=== PATIENT | female | born 1995 | race Caucasian/White ===

== ENCOUNTER 2023-02-18 09:03 | Outpatient (CLI) | payer BC, SELFPAY ==
--- NOTE | 2023-02-18 09:15 | CRLHL7_ITS ---
For Patients: As a result of the Century Cures Act, medical imaging exams and procedure reports are released immediately into your electronic medical record. You may view this report before your referring provider. If you have questions, please contact your health care provider. INDICATION: Dating and viability TECHNIQUE: Conventional transabdominal two-dimensional aldrich-scale ultrasound examination. COMPARISON: None FINDINGS: There is are living twin pregnancies with gestational age of 7 weeks 2 days by LMP and EDC of 10/05/2023. This is a dichorionic twin . Twin A: The gestational sac appears to be within normal limits. Based on crown-rump length the gestational age is 6 weeks 6 days with EDC of 10/08/2023. The embryonic heart rate is measured at 126 beats per minute. Twin B: The gestational sac appears to be within normal limits. Based on crown-rump length the gestational age is 6 weeks with EDC of 10/14/2023. The embryo heart rate is measured at 89 beats per minute. A 1.8 x 0.9 x 0.7 cm subchorionic hemorrhage is demonstrated between the gestational sacs and the cervix. A right ovarian corpus luteum is noted. The right ovary measures 3.4 x 2.0 x 1.9 cm and the left 2.6 x 1.7 x 1.4 cm. IMPRESSION: 1. Living dichorionic twin with gestational age of 7 weeks 2 days by LMP, 6 weeks 6 days by crown-rump length of twin A and 6 weeks by crown-rump length of twin B. EDC based on LMP is 10/05/2023. 2. 1.8 x 0.9 x 0.7 cm subchorionic hemorrhage between the gestational sacs and the cervix. Dictated by Varinder Nevarez MD @ 02/20/2023 12:18:59 PM (Electronically Signed)
== END 2023-02-18 09:04 | disposition home or self-care (01) ==
LOC: US 09:03
PROVIDERS: Visit Provider Physician Assistant
DX: Z34.91 Encounter for supervision of normal pregnancy, unspecified, first trimester (principal); O30.001 Twin pregnancy, unspecified number of placenta and unspecified number of amniotic sacs, first trimester; O20.9 Hemorrhage in early pregnancy, unspecified; Z3A.01 Less than 8 weeks gestation of pregnancy
CPT/HCPCS: 76817; 86703; 86706; 86803; 86850; 86900; 86901; 87086; 87340; 87491; 87591

== ENCOUNTER 2023-02-18 10:28 | Outpatient (CLI) | payer BC, SELFPAY ==
[2023-02-18 16:36] LABS: Chlamydia DNA Amplified* NOT DETECTED (No Detected); GC DNA Amplified* NOT DETECTED (No Detected)
== END 2023-02-18 10:29 | disposition home or self-care (01) ==
PROVIDERS: Visit Provider Physician Assistant
DX: Z34.91 Encounter for supervision of normal pregnancy, unspecified, first trimester (principal)
CPT/HCPCS: 86592; 86703; 86704; 86706; 86762; 86787; 86803; 86850; 86900; 86901; 87086; 87340; 87491; 87591

== ENCOUNTER 2023-03-03 09:35 | Outpatient (CLI) | payer BC, SELFPAY ==
--- NOTE | 2023-03-03 09:45 | CRLHL7_ITS ---
For Patients: As a result of the Century Cures Act, medical imaging exams and procedure reports are released immediately into your electronic medical record. You may view this report before your referring provider. If you have questions, please contact your health care provider. INDICATION: FOLLOW UP VIABILITY TWIN GESTATION COMPARISON: 02/18/2023 TECHNIQUE: Real-time aldrich-scale imaging of the pelvis was performed. FINDINGS: Twin A: Gestational sac measures 4.2 cm. pole measures 2.1 cm. Yolk sac measures 3.7 millimeters. heart rate 169 beats per minute. Sonographic gestational age 8 weeks 5 days with sonographic due date 10/08/2023. There is a subchorionic hemorrhage measuring 2.8 x 0.6 x 1.8 cm located between the gestational sacs regarding this diamniotic/dichorionic twin gestation. Twin B: Gestational sac measures 1.9 cm. pole measures 3.3 millimeters, 6 weeks 0 days. No heart tones. Yolk sac measures 5.4 millimeters. IMPRESSION: Living twin A measures 8 weeks 5 days and sonographic due date 10/08/2023. Twin B demise. Dictated by Bayron Kingsley MD @ 03/03/2023 10:27:04 AM (Electronically Signed)
== END 2023-03-03 09:36 | disposition home or self-care (01) ==
LOC: US 09:36
PROVIDERS: Visit Provider Physician Assistant
DX: O30.001 Twin pregnancy, unspecified number of placenta and unspecified number of amniotic sacs, first trimester (principal); Z3A.08 8 weeks gestation of pregnancy
CPT/HCPCS: 76817

== ENCOUNTER 2023-07-28 10:55 | Outpatient (CLI) | payer BC, SELFPAY | END 2023-07-28 10:56 | disposition home or self-care (01) | LOC: NFLDREF 08-01 18:15 | PROVIDERS: Visit Provider Obstetrics & Gynecology | DX: Z34.93 Encounter for supervision of normal pregnancy, unspecified, third trimester (principal); Z3A.30 30 weeks gestation of pregnancy | CPT/HCPCS: 86592 ==

== ENCOUNTER 2023-08-26 09:50 | Outpatient (CLI) | payer BC, SELFPAY | END 2023-08-26 09:51 | disposition home or self-care (01) | LOC: NFLDREF 08-28 09:35 | PROVIDERS: Visit Provider Obstetrics & Gynecology | DX: O99.013 Anemia complicating pregnancy, third trimester (principal); D64.9 Anemia, unspecified; Z3A.34 34 weeks gestation of pregnancy | CPT/HCPCS: 82728 ==

== ENCOUNTER 2023-09-09 10:40 | Outpatient (CLI) | payer BC, SELFPAY ==
--- NOTE | 2023-09-09 10:45 | CRLHL7_ITS ---
For Patients: As a result of the Century Cures Act, medical imaging exams and procedure reports are released immediately into your electronic medical record. You may view this report before your referring provider. If you have questions, please contact your health care provider. INDICATION: Third trimester scan, evaluate growth. COMPARISON: 03/03/2023 TECHNIQUE: Real time aldrich scale imaging of the fetus was performed. FINDINGS: Sonographic imaging demonstrates a single living intrauterine gestation. Fetus demonstrates a regular cardiac rate of 142 beats per minute. Fetus has a vertex position. The placenta lies anteriorly. Amniotic fluid volume appears normal and there is a single deepest vertical pocket: 7.9 cm. The estimated weight is 3532gm which lies at the 96th %. BPD 71st percentile. HC 36th percentile. AC greater than 97th percentile. FL 22nd percentile. The HC/AC ratio measures 0.89 range (0.91-1.05). Bilateral renal pelviectasis measuring 2.2 cm and the left and 2.1 cm on the right. IMPRESSION: Sonographic gestational age 37 weeks 3 days and a sonographic due date 09/27/2023. Sonographic age 8 days ahead of the clinical age. Estimated weight 96th percentile. Abdominal circumference greater than 97th percentile. Bilateral renal pelviectasis measuring 2.2 cm on the left and 2.1 cm on the right. follow-up recommended. Dictated by Bayron Kingsley MD @ 09/11/2023 6:53:16 AM (Electronically Signed)
== END 2023-09-09 10:41 | disposition home or self-care (01) ==
LOC: US 10:40
PROVIDERS: Visit Provider Obstetrics & Gynecology
DX: Z34.93 Encounter for supervision of normal pregnancy, unspecified, third trimester (principal); Z3A.37 37 weeks gestation of pregnancy
CPT/HCPCS: 76816; 87081; 87653

== ENCOUNTER 2023-09-22 10:07 | Outpatient (CLI) | payer BC, SELFPAY ==
--- NOTE | 2023-09-22 10:30 | CRLHL7_ITS ---
For Patients: As a result of the Century Cures Act, medical imaging exams and procedure reports are released immediately into your electronic medical record. You may view this report before your referring provider. If you have questions, please contact your health care provider. INDICATION: F/U RENAL PELVIS AND VARIX COMPARISON: 09/09/2023, 05/16/2023 TECHNIQUE: Real time aldrich scale imaging of the fetus was performed. Without non-stress testing. FINDINGS: Sonographic imaging demonstrates a single living intrauterine gestation. Fetus demonstrates a regular cardiac rate of 139 beats per minute. Fetus has a vertex position. The amniotic fluid volume single deepest pocket measurement of 9.0 cm. SAVAGE 22.9 cm. The fetus was active and demonstrated normal breathing movements. There was normal flexion and extension of the trunk and extremities. Renal pelviectasis again noted, measuring 7.4 millimeters on the left and 1.5 cm on the right, previously measuring 8 millimeters on the left and 1.6 cm on the right. Varix again noted measuring 19 millimeters, previously measuring 19 millimeters. IMPRESSION: Normal biophysical profile score of 8 out of 8. Bilateral pelviectasis and varix are similar. SDP 9.0 cm. SAVAGE 22.9 cm. Dictated by Bayron Kingsley MD @ 09/22/2023 12:18:59 PM (Electronically Signed)
== END 2023-09-22 10:08 | disposition home or self-care (01) ==
LOC: US 10:07
PROVIDERS: Visit Provider Obstetrics & Gynecology
DX: O09.293 Supervision of pregnancy with other poor reproductive or obstetric history, third trimester (principal); Z3A.37 37 weeks gestation of pregnancy
CPT/HCPCS: 76816; 76819

== ENCOUNTER 2023-09-28 16:42 | Inpatient (IN) | payer BC, SELFPAY ==
[2023-09-28] VITALS (7 sets, daily range): BP systolic 101–125; BP diastolic 56–69; PULSE 76–97; RESP 16; TEMP 36.5–36.6; O2SAT 98–99; BMI 35.6
[2023-09-28 17:42] LABS: Basophils Absolute Auto 0.04 K/uL (0.00-0.30); Basophils Percent Auto 0.4 % (0.0-3.0); Hematocrit 33.7 % (33.0-51.0); Hemoglobin* 11.2 gm/dL (12.0-16.0); Immature Granulocytes Abs Auto 0.14 K/uL (0.00-0.30); Immature Granulocytes Pct Auto 1.4 %; Lymphocytes Percent Auto 14.8 % (20-44); Mean Corpuscular HGB Conc 33 gm/dL (32-36); Mean Corpuscular Hemoglobin 31 pg (26-34); Mean Corpuscular Volume 92 fL (80-100); Monocytes Percent Auto 8.3 % (0.0-11.0); Neutrophils Percent Auto 74.1 % (42.0-72.0); Platelet Count* 186 K/uL (140-440); RDW Coefficient of Variation % 13.1 % (11.5-15.5); Red Blood Count 3.67 m/uL (4.00-5.20); White Blood Count* 10.35 K/uL (4.50-11.00)
[2023-09-28 17:45] LABS: Slide Review Reflex No
--- NOTE | 2023-09-28 17:58 | W.PM.LDBA ---
Subjective History of Present Illness Date Seen: 09/28/23 Narrative: Patient is being admitted to Labor and Delivery for induction of labr. She is a 28 year old -0-4-2 woman at 39 weeks gestation. She was newly diagnosed with umbilical vein varix on US from 09/16, and [facility] recommended delivery at 39 weeks. Her full history and physical was dictated by Dr. Dick on 09/16/23. Please see this for details. Specific Issues/Plans H&P done on 09/16/[address] Dick 1. History of recurrent loss, History of 2 partial molar, and 1 miscarriage Consult with Genetics/[facility]: This was to be pre , however they had found out they were 1 day before consult. No specific genetic testing in regards to the molar pregnancies. Patient did have negative carrier screening No evidence of partial mole on early or level 2 US - partial mole could be live born, features may include severe growth restriction or congenital anomalies Needs placenta sent to pathology, serial hCG to trend to zero 2. Initially a di/di twin gestation, NOW A DOW Baby A: normal heart rate 126, Baby B: (measuring 6 days smaller) low heart rate, 89 Repeat viability ultrasound in 2 weeks: Demise of Twin B Declined NIPT, s/p consult with [facility] Scheduled for [facility] consultation and ultrasound on 04/23/2023 at [facility] [x] Level 2 US - normal anatomy/growth aside from below, anterior placenta w/o previa 3. Bilateral urinary tract dilation of fetus (UTDA2) [x] [facility] planning repeat US at 24 weeks, then q2w - planning to do at [facility] to keep within [facility] system -24 week: by patient report, kidneys stable, growth and fluid WNL [x] f/u [facility] records (24 week and subsequent) - need records [x] Peds Neph consult at 32 weeks - need records for consult, but US report was provided and both renal pelvices were 10mm on R and 7mm on L [x] 36 week US here - both renal pelvices >20mm in dilation, normal amniotic fluid [x] repeat evaluation by [facility] 09/17/23: Bilateral renal pyelectasis, Right 16 mm, Left 7.9.mm, and new finding of umbilical vein varix measuring 19 mm. Recommendations: Weekly BPP with reassessment of the umbilical vein, Delivery at 39 weeks, renal imaging of infant at 48 hours of life 4. Anxiety, well managed on sertraline 100 mg 5. History of for breech presentation, desires TOLAC History of successful [x] TOLAC consult at 28 weeks: Consent obtained on 07/28/2023 [x] 09/08 EFW 3532g 96%ile, AC >97%ile. MVP 7.9cm. Hx of successful with 10lb at 41 weeks. Encouraged her to consider IOL at 39 weeks, will discuss again at future visits. 6. Obesity, BMI 32.9 HGB A1-C: 5.3% 7. 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 Delivery at 39 weeks for this indication Flu and covid shot: declined Tdap: 07/28/23 32 wk mental health:08/11/23 34 wk Hgb: 10.7, started PO iron 36 GBS: Negative Last pap 09/2019. Repeat . Ultrasound 09/17/23: MFM. Cephalic. EFW 94%, 3727 g. BPD 84%, FL 21%, HC 30%, AC>98%. Bilateral renal pyelectasis: R 16 mm, L 7.9 mm. Umbilical vein varix 19 mm. Renal imaging at 48 hours of life. OB - Problem Based A/P Additional Plan (1) Pyelectasis of fetus on ultrasound: Status: Acute (2) H/O macrosomia in in prior , currently : Status: Acute (3) Hx successful (vaginal after ), currently : Status: Acute (4) Partial molar : Problem details: recurrent, 2 Status: Acute (5) Varices of umbilical vein: Status: Acute Plan Cervical ripening tonight, with plan for IOL tomorrow. Begin low-dose pitocin for ripening between midnight and 3 AM. Continuous monitoring while on pitocin. CBC now. IV in place. OB Exam Physical Exam Vital signs: Temp Pulse BP Pulse Ox 97.8 F 93 125/69 98 09/28/23 17:06 09/28/23 16:57 09/28/23 16:57 09/28/23 16:57 Narrative: Physical exam: General: No acute distress Psych: Alert and oriented x3, full affect HEENT: Normocephalic, atraumatic Heart: Regular rate and rhythm, no murmur rub or gallop Lungs: Clear to auscultation bilaterally Abdomen: Soft, nontender, gravid, cephalic lie Lower extremities: No edema or erythema Pelvic exam: / -2 / midposition / soft tracing: Baseline 130 / accelerations present / no decelerations / moderate variability. Irregular, infrequent contractions.
[2023-09-29] VITALS (53 sets, daily range): BP systolic 99–175; BP diastolic 53–79; PULSE 46–208; RESP 16–18; TEMP 36.4–37.1; O2SAT 80–100
[2023-09-29] MEDS: LACTATED RINGERS 1000 ML 1,000 ML 125 ML IV (02:46)
[2023-09-29] MEDS: OXYTOCIN 30 unit/500 ML in NS 30 UNIT/500 ML BAG IVPB (02:47)
--- NOTE | 2023-09-29 08:54 | PM.OBPNL ---
Subjective Time Seen by Provider: 08:54 Date Seen: 09/29/23 Objective Vital Signs: Last Vital Signs Temp 97.9 F 09/29/23 08:20 Pulse 121 H 09/29/23 08:20 Resp 16 09/29/23 06:03 BP 116/64 09/29/23 08:20 Pulse Ox 97 09/29/23 08:20 Pelvic Exam Dilation (cm): 4 Effacement (%): 50 Station: -3 Comments: Discussed with patient the discrepancy in her cervical exam as she was called 6 cm previously. In essence, she is not in active labor. This fits with her clinical picture as she's only adeline Q3-5 minutes and has not felt increased in pelvic pressure. We discuss continuing titrating Pitocin and reassessing in 3-4 hours. If she continues to be unchanged, I would like to place internals in the form of an IUPC and FSE. I explained that those are and why we use them. She expressed understanding, continues to desires TOLAC, and is amenable to the plan. Epidural per patient's request. Labor timeline thus far: Cook cath placed at 1820 on 09/27 SROM at 2130 on 09/27 Pitocin started at 0245 Assessment Status: Category l Heart Rate Baseline: 145 Intermediate Variability: Moderate (6-25) Monitor Accelerations: Present Monitor Decelerations: None
[2023-09-29] MEDS: LIDOCAINE 2% (PF) 5 ML VIAL EPIDURAL (10:17)
[2023-09-29] MEDS: ROPIVACAINE 0.2% 100 ml 100 ML 12 MG EPIDURAL (10:17)
[2023-09-29] MEDS: LACTATED RINGERS 1000 ML 1,000 ML IV (10:22)
--- NOTE | 2023-09-29 10:24 | P.ANBPRC_ITS ---
[facility] Medical History History of (05/14/21) ?Z98.891 - History of uterine scar from previous surgery (ICD-10) Surgical History History of D&C ?Z98.890 - Other specified postprocedural states (ICD-10) History of (03/21/20) ?Z98.891 - History of uterine scar from previous surgery (ICD-10) Social History Narrative: Occupation: [employer]. Marital status: . Yazdanism/cultural needs: no. Chemical or radiation exposure: no. Pre- tobacco use: no. Pre- alcohol use: 0-1/day Current tobacco use: no. Current alcohol use: no. Recreational drug use: no. Dietary restrictions: no. Blood transfusion acceptable in an emergency: yes. PSYCHOSOCIAL HISTORY: History of depression or currently depressed: no. Current or past physical, emotional, or sexual mistreatment: no. Problems that will make it hard to make it to appointments: no. What is your current living situation?: I presently have a place to live Problems where you live: no known problems In the past 12 months, utilities in danger of being shut off: no In past 12 months, lack of transportation kept you from medical appts, meetings, work, or getting things needed for daily living: no In the past 12 mos, have been you worried that your food would run out before you had money to buy more?: never true In the past 12 mos, the food you bought just didn't last and you didn't have money to buy more?: never true Smoking Status: Never smoker How often does anyone, including family, friends and others, physically hurt you : never How often does anyone, including family, friends and others, insult or talk down to you: never How often does anyone, including family, friends and others, threaten you with harm: never How often does anyone, including family, friends and others, scream or curse at you: never Little interest or pleasure in doing things: not at all Feeling down, depressed, or hopeless: not at all Meds Home Medications and Allergies Home Medications ?Medication ?Instructions ?Recorded ?Confirmed ?Type PNV no.151-iron 27 mg-folic 800 1 cap PO DAILY 12/16/22 09/28/23 History mcg-omega3 260 rl-prj-nil-fish capsule ( Multi-DHA (with vitamin K)) sertraline 100 mg tablet 100 mg PO QDAY 12/16/22 09/28/23 History diphenhydramine HCl 50 mg capsule 50 mg PO QHS 02/18/23 09/28/23 History ([employer] SleepGels) famotidine 20 mg tablet (Pepcid) 20 mg PO QDAY 02/18/23 09/28/23 History acetaminophen 500 mg tablet 1,000 mg PO Q6H PRN 08/26/23 09/28/23 History (Tylenol Extra Strength) calcium carbonate (Tums) 200 mg PO BID 08/26/23 09/28/23 History ferrous sulfate 27 mg iron tablet 27 mg PO QDAY 09/09/23 09/28/23 History Allergies Allergy/AdvReac Type Severity Reaction Status Date / Time No Known Drug Allergies Allergy Verified 09/22/23 09:06 Results Labs Labs: Laboratory Results - last 24 hr 09/28/23 17:33 WBC 10.35 RBC 3.67 L Hgb 11.2 L Hct 33.7 MCV 92 MCH 31 MCHC 33 RDW Coeff of Yohana 13.1 Plt Count 186 Neut % (Auto) 74.1 H Lymph % (Auto) 14.8 L Cedar % (Auto) 8.3 Eos % (Auto) 1.0 Baso % (Auto) 0.4 Neut # (Auto) 7.70 H Lymph # (Auto) 1.50 Cedar # (Auto) 0.90 Eos # (Auto) 0.10 Baso # (Auto) 0.04 Abs Immat Gran (auto) 0.14 Imm/Tot Granulo (auto) 1.4 Blood Type A Positive Antibody Screen NEGATIVE Vital Signs Vital Signs: Last Vital Signs Temp 98.2 F 09/29/23 09:17 Pulse 93 09/29/23 10:23 Resp 16 09/29/23 06:03 BP 124/70 09/29/23 10:23 Pulse Ox 100 09/29/23 10:20 Weight: 100.062 kg Height: 167.64 cm Anesthesia Procedures Epidural Insertion Patient Location: OB Start Time: 10:00 Stop Time: 10:30 Start Date: 09/29/23 Stop Date: 09/29/23 Reason for Block: primary anesthetic Patient Position: sitting Performed By: Yaya Penny Preanesthetic Checklist: IV checked, risks and benefits discussed, surgical consent, monitors and equipment checked, pre-op evaluation, timeout performed and anesthesia consent Prep: chlorhexidine gluconate Monitoring: blood pressure monitoring, secured entrance monitor, continuous pulse oximetry and heart rate Approach: midline Vertebral Space: lumbar (1-5) Needle Type: Tuohy needle Injection Technique: continuous catheter (catheter) Needle gauge: 17 Needle Length (cm): 10 cm Needle Insertion Depth (cm): 6 Catheter Gauge: 19 Catheter Type: multi-orifice Catheter at skin depth (cm): 11 Test Dose Result: negative and lidocaine 1.5% with epinephrine 1 to 200,000
[2023-09-29] MEDS: OXYTOCIN 10 UNIT/ML INJ IM (11:35)
--- NOTE | 2023-09-29 12:15 | W.PM.VAGDEL1 ---
Procedure Delivery date: 09/29/23 Procedure Done: Global Procedure Details: Liudmila is a 28 year-old G 7 P2042 admitted on 09/28/23 at 38w1d for induction of labor due to hx of macrosomia. She also has a hx of a primary delivery and 1 successful . She has cook cath placed at 1820 on 09/27. SROM occurred at 2130 on 09/27 with clear fluid. Cook cath was subsequently removed after SROM. Labor Analgesia: Epidural Pitocin: Yes Complete: 09/29/23 at 1105 Pushin09/29/23 at 1109 heart tones during second stage were cat I with baseline heart rate of 160 bpm, moderate variability, multiple qualifying accels, early decelerations. At 1121 a viable male infant delivered in vertex OA presentation over intact perineum via spontaneous vaginal delivery. Infant was placed on maternal abdomen. Cord was clamped and cut after a 30-60 second delay. Nose and mouth were bulb suctioned. weight: 4045g. 8 at 1 minute and 9 at 5 minutes. Shoulder dystocia: No. Nuchal cord: No. Placenta delivered spontaneously and complete at 1127 with a 3 vessel cord. Remnant of twin noted on placental membrane. Placenta will be sent to pathology for history of molar , vanishing twin, varices of umbilical vein. Complications: None. Mother and infant were stable after delivery. Laceration(s): 1st degree, repaired with 2-0 vicryl. Estimated blood loss: 100 mL. Uterotonics: 40 units of Pitocin Sponge and needles counts are correct. Mother and were stable at the time of this note. Events: Previous and Labor Induction Intrapartal Events: Labor Induction Delivery augmentation: pitocin Delivery monitor: external FHT Route of delivery: Laceration description: Perineal - 1st Degree Delivery repair: Vicryl Estimated blood loss (mL): 100 Anesthesia type: Epidural Disposition: floor Gender: Male presentation: vertex Placental Delivery Description: Spontaneous Cord Description: 3 Vessels
[2023-09-29] MEDS: IBUPROFEN 600 MG TABLET PO ×2 (14:55→21:14)
[2023-09-29] MEDS: ACETAMINOPHEN 500 MG TABLET 1000 MG PO (18:00)
[2023-09-29] MEDS: miSOPROStoL 800 MCG/4 TABLET PR (18:40)
[2023-09-29] MEDS: MORPHINE 10 MG/ML inj IVP (19:21)
[2023-09-29] MEDS: METHYLERGONOVINE MALEATE 0.2 MG/ML INJ IM (19:34)
--- NOTE | 2023-09-29 19:42 | PM.OBPNVD1 ---
OB - PN:Subj Subjective Time Seen by Provider: 19:45 Date Seen: 09/29/23 Narrative: Notified by RN that patient had sudden abrupt passage of large clots when she went to void after appropriate bleeding for most of the afternoon. I asked for 800 mcg of misoprostol to be placed rectally while I come to assess at bedside. Upon arrival, RN reported passage of a football size clot. After weighing, the clot was calculated to be 830 cc. Patient reports that she has been up multiple times throughout the day without issues. Bleeding was light up until this most recent event. Voiding freely without issues as well. Initial fundal check reveal firm fundus 2 cm below the umbilicus. BSUS showed thin endometrial strip until the lower uterine segment. Clots noted to still be retained in the lower uterine segment. Discussed with patient that I need to manually evacuate those clots or the lower uterine segment will remain boggy and continue to bleeding. Patient gave verbal consent for manual evacuation at bedside. IV morphine given prior to manual evacuation of lower uterine segment clots. After removal of clots, there was immediate cessation of bleeding. Bimanual massage performed to keep lower uterine segment firm. It firmed up appropriately. 0.2 mg Methergine given IM. Reassessment with BSUS showed thin endometrial strip throughout. No obvious signs of retained placenta. I assessed all of her clots and there does not appear to be retained tissue in the clots. Patient denies any current SOB, n/v, headache, or dizziness. OB - PN: Obj Exam Physical Exam: Vital signs: Temp Pulse Resp BP Pulse Ox O2 Del Method 98.7 F 95 18 110/65 95 Room Air 09/29/23 16:06 09/29/23 16:06 09/29/23 16:06 09/29/23 16:06 09/29/23 16:06 09/29/23 16:06 Narrative: Physical exam: General: No acute distress Psych: Alert and oriented x3, full affect HEENT: Normocephalic, atraumatic Lungs: Unlabored breathing Neuro: No focal deficit. Mentating appropriately Pelvic exam: Mons normal, clitoris normal, urethral meatus normal. Labia minora and majora normal in appearance bilaterally. Perineum and anus normal appearance. Vaginal introitus normal appearance. Laceration repair intact. Bimanual exam reveals boggy lower uterine segment was clots. Fundus is firm and 2 cm below the umbilicus. No palpable adnexal masses or tenderness. OB - PN: A/P Delivery Assessment and Plan (1) Pyelectasis of fetus on ultrasound: Status: Acute (2) Partial molar : Problem details: recurrent, 2 Status: Acute (3) Varices of umbilical vein: Status: Acute (4) state: Status: Acute (5) Recurrent loss: Problem details: x3 (2012, 11/2017 - partial molar, 02/2022 Status: Acute (6) hemorrhage: Status: Acute Assessment and Plan: - QBL 2009 cc. Majority clotted blood. No brisk, bright red bleeding. - s/p 800 mcg of misoprostol LA, 0.2 mg of Methergine IM, and manual evacuation of clots from the lower uterine segment with good response. - Stat CBC, coag, and type and cross for 2u of pRBC ordered due to hemorrhage - Will hold on blood until labs return due to complete cessation of bleeding and continue hemodynamic stability
[2023-09-29 19:58] LABS: Basophils Percent Auto 0.2 % (0.0-3.0); Eosinophils Percent Auto 0.4 % (0.0-7.0); Hemoglobin* 9.4 gm/dL (12.0-16.0); Immature Granulocytes Pct Auto 0.9 %; Mean Corpuscular HGB Conc 34 gm/dL (32-36); Mean Corpuscular Hemoglobin 31 pg (26-34); Mean Corpuscular Volume 92 fL (80-100); Monocytes Percent Auto 8.5 % (0.0-11.0); Platelet Count* 196 K/uL (140-440); RDW Coefficient of Variation % 13.1 % (11.5-15.5); Red Blood Count 3.04 m/uL (4.00-5.20); White Blood Count* 14.48 K/uL (4.50-11.00)
[2023-09-29 20:24] LABS: INR 0.95 (0.91-1.10); Prothrombin Time 13.2 Seconds
[2023-09-29 20:25] LABS: Partial Thromboplastin Time* 29 Seconds (23-33); Slide Review Reflex No
[2023-09-29 20:39] LABS: Fibrinogen* 362 mg/dL (200-450)
[2023-09-30 00:03] VITALS: BP 111/74; PULSE 99; RESP 19; TEMP 36.4; O2SAT 98
[2023-09-30] MEDS: IBUPROFEN 600 MG TABLET PO ×2 (03:27→08:48)
[2023-09-30 03:45] VITALS: BP 116/74; PULSE 84; RESP 17; TEMP 36.5; O2SAT 98
[2023-09-30 05:28] LABS: Basophils Percent Auto 0.3 % (0.0-3.0); Eosinophils Percent Auto 1.1 % (0.0-7.0); Hematocrit 26.4 % (33.0-51.0); Hemoglobin* 8.8 gm/dL (12.0-16.0); Immature Granulocytes Pct Auto 1.2 %; Lymphocytes Percent Auto 13.8 % (20-44); Mean Corpuscular HGB Conc 33 gm/dL (32-36); Mean Corpuscular Hemoglobin 31 pg (26-34); Mean Corpuscular Volume 94 fL (80-100); Monocytes Percent Auto 9.5 % (0.0-11.0); Neutrophils Percent Auto 74.1 % (42.0-72.0); Platelet Count* 161 K/uL (140-440); RDW Coefficient of Variation % 13.3 % (11.5-15.5); White Blood Count* 14.59 K/uL (4.50-11.00)
[2023-09-30 05:37] LABS: Slide Review Reflex No
[2023-09-30] MEDS: ACETAMINOPHEN 500 MG TABLET 1000 MG PO ×3 (06:02→12:17)
[2023-09-30 07:44] VITALS: BP 97/58; PULSE 85; RESP 18; TEMP 36.7; O2SAT 98
--- NOTE | 2023-09-30 08:10 | PM.OBDSVD1 ---
DS: Providers Provider Date Seen: 09/30/23 Date of admission: 09/28/23 16:42 Primary care physician: Not a Local Provider Admitting Clinician: Zo Street MD Attending Physician on discharge: Zo Street MD Date of Discharge: 09/30/23 DS: Diagnosis Discharge Diagnosis (1) state: Status: Acute (2) hemorrhage: Status: Acute Exam Narrative: Exam Narrative: VSS, afebrile GENERAL APPEARANCE: ?normal affect, alert, no distress MOOD: ?appropriate HEENT: normocephalic, neck supple, full ROM CHEST: ?Symmetrical chest wall movement. ?Normal respiratory effort. ?Clear to auscultation HEART: ?regular rate and rhythm ABDOMEN: ?soft, non-tender. Uterine fundus is firm, at Umbilicus, Midline and is appropriate for the stage of recovery. ?Bowel sounds present. PERINEUM: ?mild edema of the perineum, there is a 1st degree laceration that is healing well. EXTREMITIES: ?normal and no edema Const: Vital Signs, click to edit/add: Vital Signs - 24 hr 09/29/23 08:20 09/29/23 08:20 09/29/23 09:17 Temperature 97.9 F Pulse Rate 121 H 97 Pulse Rate [Pulse Oximeter] Respiratory Rate Blood Pressure 116/64 123/66 Blood Pressure [Le ft Arm] Pulse Oximetry [facility] 09[facility] 09:17 09/29/23 09:18 09/29/23 10:03 Temperature 98.2 F Pulse Rate Pulse Rate [Pulse Oximeter] Respiratory Rate Blood Pressure Blood Pressure [Le ft Arm] Pulse Oximetry 99 [facility] 09/29/23 10:08 09/29/23 10:09 09/29/23 10:11 Temperature Pulse Rate 102 H 93 Pulse Rate [Pulse Oximeter] Respiratory Rate Blood Pressure 140/77 H 142/78 H Blood Pressure [Le ft Arm] Pulse Oximetry 100 [facility] 09/29/23 10:13 09/29/23 10:15 09/29/23 10:17 Temperature Pulse Rate 96 96 96 Pulse Rate [Pulse Oximeter] Respiratory Rate Blood Pressure 132/64 122/56 L 144/69 H Blood Pressure [Le ft Arm] Pulse Oximetry 100 [facility] 09/[facility]/23 10:18 09/29/23 10:19 09/29/23 10:20 Temperature Pulse Rate 98 Pulse Rate [Pulse Oximeter] Respiratory Rate Blood Pressure 126/74 Blood Pressure [Le ft Arm] Pulse Oximetry 80 L [facility] 09/29/23 10:21 09/29/23 10:23 09/29/23 10:23 Temperature 98.4 F Pulse Rate 100 93 Pulse Rate [Pulse Oximeter] Respiratory Rate Blood Pressure 125/68 124/70 Blood Pressure [Le ft Arm] Pulse Oximetry Oxygen Delivery [facility] 09/29/23 10:25 09/29/23 10:27 09/29/23 10:29 Temperature Pulse Rate 96 88 90 Pulse Rate [Pulse Oximeter] Respiratory Rate Blood Pressure 122/61 123/69 117/65 Blood Pressure [Le ft Arm] Pulse Oximetry 100 Oxygen Delivery [facility] 09/29/23 10:30 09/29/23 10:31 09/29/23 10:35 Temperature Pulse Rate 92 Pulse Rate [Pulse Oximeter] Respiratory Rate Blood Pressure 117/63 Blood Pressure [Le ft Arm] Pulse Oximetry 100 99 Oxygen Delivery [facility] 09/29/23 10:38 09/29/23 10:40 09/29/23 10:42 Temperature Pulse Rate 90 91 Pulse Rate [Pulse Oximeter] Respiratory Rate Blood Pressure 119/67 115/67 Blood Pressure [Le ft Arm] Pulse Oximetry 98 Oxygen Delivery [facility] 09/29/23 10:45 09/29/23 10:46 09/29/23 10:50 Temperature Pulse Rate 107 H Pulse Rate [Pulse Oximeter] Respiratory Rate Blood Pressure 99/53 L Blood Pressure [Le ft Arm] Pulse Oximetry 97 99 Oxygen Delivery [facility] 09/29/23 10:51 09/29/23 10:56 09/29/23 11:02 Temperature Pulse Rate 90 93 118 H Pulse Rate [Pulse Oximeter] Respiratory Rate Blood Pressure 132/64 130/69 175/67 H Blood Pressure [Le ft Arm] Pulse Oximetry Oxygen Delivery [facility] 09/29/23 11:07 09/29/23 11:26 09/29/23 11:30 Temperature 98.2 F Pulse Rate 123 H 90 Pulse Rate [Pulse Oximeter] Respiratory Rate Blood Pressure 126/77 118/57 L Blood Pressure [Le ft Arm] Pulse Oximetry Oxygen Delivery [facility] 09/29/23 11:40 09/29/23 11:56 09/29/23 12:11 Temperature Pulse Rate 96 107 H 90 Pulse Rate [Pulse Oximeter] Respiratory Rate Blood Pressure 104/57 L 119/63 113/79 Blood Pressure [Le ft Arm] Pulse Oximetry Oxygen Delivery [facility] 09/29/23 12:26 09/29/23 12:40 09/29/23 12:55 Temperature Pulse Rate 82 78 93 Pulse Rate [Pulse Oximeter] Respiratory Rate Blood Pressure 109/58 L 113/62 114/69 Blood Pressure [Le ft Arm] Pulse Oximetry Oxygen Delivery [facility] 09/29/23 13:10 09/29/23 13:25 09/29/23 16:06 Temperature 98.7 F Pulse Rate 77 100 Pulse Rate [Pulse Oximeter] 95 Respiratory Rate 18 Blood Pressure 113/62 109/60 Blood Pressure [Le ft Arm] 110/65 Pulse Oximetry 95 Oxygen Delivery [facility] Room Air 09/29/23 20:00 09/30/23 00:03 09/30/23 03:45 Temperature 98.6 F 97.6 F 97.7 F Pulse Rate Pulse Rate [Pulse Oximeter] 91 99 84 Respiratory Rate 17 19 17 Blood Pressure Blood Pressure [Le ft Arm] 111/75 111/74 116/74 Pulse Oximetry 98 98 98 Oxygen Delivery [facility] Room Air Room Air Room Air 09/30/23 07:44 Temperature 98.0 F Pulse Rate Pulse Rate [Pulse Oximeter] 85 Respiratory Rate 18 Blood Pressure Blood Pressure [Le ft Arm] 97/58 L Pulse Oximetry 98 [facility] Documenting provider has reviewed patient's vital signs: yes OB - DS: Summary Hospital Course Hospital Course: Liudmila is a 28 y.o. who was admitted to [facility] for labor. ?She had an uncomplicated NVD with a delayed PPH.?The patient feels well. ?The pain is well controlled with current medications. ?She has no new complaints. ?She is breast feeding and reports things are going well.? the patient has done well.? Vitals have been stable.? She has remained afebrile.? Has a good appetite, is tolerating a general diet. ?She is voiding without difficulty.? She is passing gas and has not had a bowel movement.? She is ambulating and denies any dizziness.? Has Small amount of rubra lochia. ?She is planning nothing for prevention. She denies any shortness of breath or dizziness when up she would like to discharge after she receives IV iron today. She did have 3 BP readings >140/90 but they were not greater than 4 hours apart. One severely elevated BP was recheck within 5 minutes and was within normal limits. She does not meet the criteria for HTN disorders of at this time. Peripartum Data delivery method: Vaginal Laceration description: Periurethral - 1st Degree Fackler Gender: Male Discharge Plan: Home Status at Discharge Functional status at discharge: independent ambulation Overall status at discharge: patient is progressing back to baseline Time Spent with Patient Time attestation: Total time spent providing and/or coordinating discharge services: Time spent: Less than 30 minutes Discharge Plan Discharge Disposition: Home, Self-Care Date of Admission: 09/28/23 16:42 Attending Provider on Discharge: Veto Love Primary Care Provider: Provider,Not a Local Condition: Stable Anticipated Discharge Date/Time: 09/30/23 14:00 Discharge Medications: New acetaminophen 500 mg Tablet 1,000 mg PO Q6H PRNQty: 0 0RF docusate sodium 100 mg Capsule 100 mg PO DAILY Qty: 90 2RF ibuprofen 600 mg Tablet 600 mg PO Q6H PRNQty: 60 0RF Continued sertraline 100 mg tablet 100 mg PO QDAY Patient Comments: [NO ORIGINAL SIG] Multi-DHA(with vit K) 27 mg iron-800 mcg-260 mg capsule 1 cap PO DAILY diphenhydramine HCl [Unisom SleepGels] 50 mg capsule 50 mg PO QHS famotidine [Pepcid] 20 mg tablet 20 mg PO QDAY calcium carbonate [Tums] 200 mg calcium (500 mg) tablet,chewable 200 mg PO BID acetaminophen [Tylenol Extra Strength] 500 mg tablet 1,000 mg PO Q6H PRN Hold Instructions: Medication is as needed Changed ferrous sulfate 27 mg iron tablet 27 mg PO Q OTHER DAY Qty: 30 0RF Rx Instructions: start taking 2 weeks after IV iron infusion Discharge Orders: Discharge Order (Routine); Ordered 09/30/23 Ordered By: Veto Love Patient Education: OB Over the Counter Medication Information, OB Vaginal/Breast Feeding Additional Instructions: Discharge instructions were reviewed with the patient including signs and symptoms of infection and home going medications Nothing vaginally for 6 weeks: no tampons or intercourse Off Work or School for 6 weeks 2-week visit: discuss infant feeding concerns, review control options and screen for anxiety/depression. 6-week visit for an annual exam. consultation services are available to all mothers and babies for the first year after delivery.? To make an appointment, please call [phone]. Activity Level: Activity as Tolerated Discharge Diet: Regular Follow Up Appointments: Provider,Not a Local [Primary Care Provider] - [facility] [Provider Group] Forms: [employer] Info Instructions
[2023-09-30] MEDS: DOCUSATE SODIUM 100 MG CAPSULE PO (08:48)
[2023-09-30] MEDS: IRON SUCROSE COMPLEX 200 MG in 0.9 % SODIUM CHLORIDE 100 ml 100 ML 440 MG IVPB (08:48)
--- NOTE | 2023-09-30 11:40 | PM.ANPOST ---
Post Anesthesia Note Post Anesthesia Note Patient seen: Inpatient Respiratory Status: adequate Cardiovascular Status: adequate Mental Status: baseline Pain: adequate Temp: baseline Anesthetic awareness: N/A Complications: none Follow care: none
[2023-09-30 12:07] VITALS: BP 106/70; PULSE 80; RESP 18; TEMP 36.3; O2SAT 95
[2023-09-30 17:47] LABS: Rapid Plasma Reagin (RPR) Non Reactive (Non Reactive)
== END 2023-09-30 14:16 | disposition home or self-care (01) | DRG 541 ==
PROVIDERS: Obstetrics & Gynecology; Admitting Provider Obstetrics & Gynecology; Visit Provider Obstetrics & Gynecology
DX: O34.211 Maternal care for low transverse scar from previous cesarean delivery (principal); O72.2 Delayed and secondary postpartum hemorrhage; O90.81 Anemia of the puerperium; O31.23 Continuing pregnancy after intrauterine death of one fetus or more, third trimester; O69.89X0 Labor and delivery complicated by other cord complications, not applicable or unspecified; O99.214 Obesity complicating childbirth; O99.344 Other mental disorders complicating childbirth; F41.9 Anxiety disorder, unspecified; Z3A.39 39 weeks gestation of pregnancy; N96 Recurrent pregnancy loss; O70.0 First degree perineal laceration during delivery; O35.EXX0 Maternal care for other (suspected) fetal abnormality and damage, fetal genitourinary anomalies, not applicable or unspecified; Z37.0 Single live birth
CPT/HCPCS: 01967; 36415; 59200; 76815; 85018; 85025; 85384; 85610; 85730; 86592; 86850; 86900; 86901; 86922; 88307; A9270; C1726; J1756; J2210; J2270; J2371; J2590; J2795; J7120

== ENCOUNTER 2023-10-07 10:00 | Outpatient (CLI) | payer BC, SELFPAY ==
--- NOTE | 2023-10-07 10:00 | CRLHL7_ITS ---
For Patients: As a result of the Century Cures Act, medical imaging exams and procedure reports are released immediately into your electronic medical record. You may view this report before your referring provider. If you have questions, please contact your health care provider. INDICATION: Placenta accreta. Delivered 09/29/2023. TECHNIQUE: Ultrasound pelvis transabdominal and transvaginal for better assessment or to better visualize the endometrium. COMPARISON: 09/22/2023. FINDINGS: Heterogeneous thickening of the endometrial stripe measures 26 mm. Mild diffuse heterogeneous echotexture of the uterus is greatest anteriorly. The uterus as imaged is otherwise unremarkable. Right and left ovaries are not visualized at this exam. No pelvic free fluid. IMPRESSION: Heterogeneous thickening of the endometrium measuring up to 26 mm is concerning for retained products of conception. Dictated by Asif Zendejas MD @ 10/07/2023 11:27:56 AM Dictated by: Asif Zendejas MD @ 10/07/2023 11:28:14 (Electronically Signed)
== END 2023-10-07 10:01 | disposition home or self-care (01) ==
LOC: US 10:00
PROVIDERS: Visit Provider Obstetrics & Gynecology
DX: O73.0 Retained placenta without hemorrhage (principal)
CPT/HCPCS: 76830; 76856

== ENCOUNTER 2023-10-15 08:18 | Outpatient (CLI) | payer BC, SELFPAY ==
--- NOTE | 2023-10-15 08:15 | CRLHL7_ITS ---
For Patients: As a result of the Century Cures Act, medical imaging exams and procedure reports are released immediately into your electronic medical record. You may view this report before your referring provider. If you have questions, please contact your health care provider. CLINICAL HISTORY: Placenta accreta TECHNIQUE: 2D aldrich scale and color Doppler images were acquired of the pelvis using a transvaginal approach. Comparison 10/07/2023. Outside study from [facility] not available. 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 The endometrium measures up to 2.4 cm in AP diameter. No findings suggestive of retained products. IMPRESSION: endometrium with complex nonvascular fluid present in the endometrial canal. No suspicious vascularity to suggest retained products. Dictated by Bayron Kingsley MD @ 10/15/2023 10:06:04 AM (Electronically Signed)
== END 2023-10-15 08:19 | disposition home or self-care (01) ==
PROVIDERS: Visit Provider Obstetrics & Gynecology
DX: Z39.2 Encounter for routine postpartum follow-up (principal); O43.219 Placenta accreta, unspecified trimester; O34.219 Maternal care for unspecified type scar from previous cesarean delivery
CPT/HCPCS: 76830; 84702

== ENCOUNTER 2023-11-25 15:52 | Outpatient (CLI) | payer BC, SELFPAY ==
[2023-11-29 08:36] LABS: HPV Source Cervical; HPV, High Risk by TMA Not Detected
== END 2023-11-25 15:53 | disposition home or self-care (01) ==
PROVIDERS: Visit Provider Obstetrics & Gynecology
DX: Z39.2 Encounter for routine postpartum follow-up (principal); Z12.4 Encounter for screening for malignant neoplasm of cervix
CPT/HCPCS: 84702; 87624; 87625; 88141; 88142

== ENCOUNTER 2024-06-22 08:36 | Outpatient (CLI) | payer BC, SELFPAY | END 2024-06-22 08:37 | disposition home or self-care (01) | LOC: NFLDREF 06-29 23:33 | PROVIDERS: Visit Provider Obstetrics & Gynecology | DX: O09.A1 Supervision of pregnancy with history of molar pregnancy, first trimester (principal) | CPT/HCPCS: 84702 ==

== ENCOUNTER 2024-07-02 08:09 | Outpatient (CLI) | payer BC, SELFPAY ==
--- NOTE | 2024-07-02 08:15 | CRLHL7_ITS ---
For Patients: As a result of the Cures Act, medical imaging exams and procedure reports are released immediately into your electronic medical record. You may view this report before your referring provider. If you have questions, please contact your health care provider. OB ULTRASOUND LESS THAN 14 WEEKS, 07/02/2024 CLINICAL HISTORY: Dating and viability. TECHNIQUE: Real time aldrich scale imaging of the fetus was performed. Transvaginal imaging performed. COMPARISON: None. FINDINGS: Imaging: TV. LMP: 05/16/2024. ROSALIE by LMP: 02/20/2025. GA: 6 weeks 5 days. CRL: 0.4 cm, 6 weeks 1 day. FHR: 115 bpm. GEST SAC: 1.7 cm, appears WNL. YOLK SAC: 2.9 mm, appears WNL. RIGHT OV: 3.6 x 2.0 x 2.3 cm. CL LEFT OV: 2.5 x 0.9 x 1.5 cm. IMPRESSION: 1. Single living intrauterine measuring 6 weeks 1 day and sonographic due date 02/24/2025. 2. Subchorionic hemorrhage superior to the gestational sac measures 0.7 x 2.6 x 2.3 cm. Bayron Kingsley M.D. Diagnostic Radiologist [email or web address] Transcribed: 2:02 pm DW/Dictated by: Bayron Kingsley MD @ 07/02/2024 12:48:00 PM (Electronically Signed)
== END 2024-07-02 08:10 | disposition home or self-care (01) ==
LOC: US 08:09
PROVIDERS: Visit Provider Obstetrics & Gynecology
DX: Z34.91 Encounter for supervision of normal pregnancy, unspecified, first trimester (principal); O20.9 Hemorrhage in early pregnancy, unspecified; Z3A.01 Less than 8 weeks gestation of pregnancy
CPT/HCPCS: 76817

== ENCOUNTER 2024-07-15 07:59 | Outpatient (CLI) | payer BC, SELFPAY ==
--- NOTE | 2024-07-15 08:15 | CRLHL7_ITS ---
For Patients: As a result of the Century Cures Act, medical imaging exams and procedure reports are released immediately into your electronic medical record. You may view this report before your referring provider. If you have questions, please contact your health care provider. OB ULTRASOUND LESS THAN 14 WEEKS, 07/15/2024 CLINICAL HISTORY: Follow-up viability. TECHNIQUE: Real time aldrich scale imaging of the fetus was performed. Transvaginal imaging performed. COMPARISON: 07/02/2024. IMAGING: Transvaginal. FINDINGS: LMP: 05/16/2024. ROSALIE by LMP: 02/20/2025. GA: 8 weeks 4 days. ROSALIE by US: 02/24/2025. GA: 6 weeks 1 day. CRL: 1.9 cm, 8 weeks 3 days. ROSALIE 02/22/2024. FHR: 169 bpm. GEST SAC: 3.5 cm, appears WNL. YOLK SAC: 3.5 mm, appears WNL. RIGHT OV: WNL 3.9 x 2.2 x 2.9 cm. CL LEFT OV: N/V. IMPRESSION: 1. Single living intrauterine measuring 8 weeks 3 days and sonographic due date 02/21/2025. 2. Subchorionic hemorrhage on the left measures 2.6 x 0.7 x 3.0 cm. 3. Umbilical cord cyst is present measuring 3 x 3 x 3 mm. Bayron Kingsley M.D. Diagnostic Radiologist [email or web address] Transcribed: 8:43 am DW/Dictated by: Bayron Kingsley MD @ 07/19/2024 5:34:00 AM (Electronically Signed)
== END 2024-07-15 08:00 | disposition home or self-care (01) ==
PROVIDERS: Visit Provider Obstetrics & Gynecology
DX: Z34.91 Encounter for supervision of normal pregnancy, unspecified, first trimester (principal); O20.9 Hemorrhage in early pregnancy, unspecified; O43.891 Other placental disorders, first trimester; Z3A.08 8 weeks gestation of pregnancy
CPT/HCPCS: 76817

== ENCOUNTER 2024-07-15 08:10 | Outpatient (CLI) | payer BC, SELFPAY ==
[2024-07-15 14:35] LABS: Chlamydia DNA Amplified* NOT DETECTED (No Detected); GC DNA Amplified* NOT DETECTED (No Detected)
== END 2024-07-15 08:11 | disposition home or self-care (01) ==
LOC: NFLDREF 09:25
PROVIDERS: Obstetrics & Gynecology; Visit Provider Obstetrics & Gynecology
DX: Z34.91 Encounter for supervision of normal pregnancy, unspecified, first trimester (principal); Z3A.08 8 weeks gestation of pregnancy
CPT/HCPCS: 83020; 83021; 85660; 86592; 86703; 86704; 86706; 86762; 86787; 86803; 86850; 87086; 87340; 87491; 87591